=== PATIENT | female | born 1965 | race Caucasian/White ===

== ENCOUNTER → 2020-02-20 09:00 | Outpatient (BNVA) | payer OTHER, SELFPAY | PROVIDERS: Family Provider Specialist; PCP Specialist; Visit Provider Nurse Practitioner Family | DX: Z11.59 Encounter for screening for other viral diseases (principal) | CPT/HCPCS: 87635 ==

== ENCOUNTER 2020-04-27 13:27 | Emergency (ER) | payer OTHER, SELFPAY ==
[2020-04-27 13:32] VITALS: BP 169/73; PULSE 80; RESP 18; TEMP 28.8; O2SAT 97; BMI 30.9
[2020-04-27 14:07] VITALS: BP 140/70; PULSE 75; RESP 16; O2SAT 97
--- NOTE | 2020-04-27 14:39 | USCV_ITS ---
Pau Graham Age: 54 Gender: F : 1965 Exam Date: 04/27/2020 14:42 Ordering Phys: Pratik Taveras DO Technologist: Flavio Pace Exam Location: [facility] Indication: arterial thrombosis. cold foot Risk Factors: Previous Vascular Surgery: RIGHT LEFT BP: 151.0 / 118.00 BP: 148.0/ 89.00 0 0 Waveform Velocity (cm/s) Velocity (cm/s) Waveform Iliac Prox 51.5 Biphasic Iliac Mid 52.1 Biphasic Iliac Distal 64.5 Biphasic POLICE STENOGRAPHER 36.3 Monophasic SFA Prox 39.8 Monophasic SFA Mid 34.7 Monophasic SFA Dist 28.7 Monophasic POP 25.4 Monophasic JEWEL FLAT SURFACER 23.0 Monophasic DPA 22.4 Monophasic BRITTNEY 0.8 FINDINGS Mild to moderate diffuse plaques in the iliac and femoral artery on the left side. Diminished resting BRITTNEY of 0.8 on the left side Patent iliac, femoral, popliteal and infrapopliteal vessels on the left side CONCLUSIONS Features of mild to moderate peripheral artery disease on the left side Dr Kaya Charles MD [facility] (Electronically Signed) Final Date: 28 April 2020 08:22 S
[2020-04-27 14:58] LABS: Basophils % 0.5 %; Eosinophils # 0.2 10^3/uL (0.0-0.8); Eosinophils % 1.8 %; Hematocrit 44.4 % (37.0-47.0); Hemoglobin 14.8 g/dL (11.5-15.3); Lymphocytes # 2.8 10^3/uL (0.8-4.8); Lymphocytes % 31.1 %; Mean Corpuscular HGB Conc 33.3 g/dL (30.0-36.0); Mean Corpuscular Hemoglobin 31.8 pg (28.0-34.0); Mean Corpuscular Volume 95.5 fL (81-99); Mean Platelet Volume 10.1 fL (7.4-10.4); Monocytes # 0.8 10^3/uL (0.2-0.9); Monocytes % 8.8 %; Neutrophils # 5.08 10^3/uL (1.8-7.7); Neutrophils % 57.6 %; Nucleated Red Blood Cells % 0 %; Platelet Count 204 10^3/cmm (130-400); Red Blood Count 4.65 10^6/uL (4.1-5.3); Red Cell Distribution Width 13.6 % (12.1-15.1); White Blood Count 8.8 10^3/uL (4.0-10.0)
[2020-04-27 15:03] LABS: Alanine Aminotransferase 24 U/L (0-33); Alkaline Phosphatase 76 IU/L (35-105); Anion Gap 13.1 (5-19); Aspartate Amino Transferase 24 U/L (0-32); Blood Urea Nitrogen 10 mg/dL (6-20); Calcium 9.1 mg/dL (8.5-10.5); Carbon Dioxide 25 mmol/L (22-29); Chloride 105 mmol/L (98-107); Glomerular Filtration Rate 165.7 mL/min (90-130); Glucose 105 mg/dL (65-115); Osmolality Calculated 287 mOsm/kg (285-295); Potassium 4.1 mmol/L (3.5-5.1); Sodium 139 mmol/L (136-145); Total Bilirubin 0.6 mg/dL (0.15-1.2)
--- NOTE | 2020-04-27 15:31 | ED_ITS ---
HPI - Extremity Problem General: Chief complaint: Extremity Problem,Nontraumatic Stated complaint: POSS VASC BLOCK LEFT LEG, FROM [facility] Time Seen by Provider: 04/27/20 13:44 History of Present Illness: HPI Narrative: 54-year-old female [facility] from her primary care provider with complaint of discolored toe she has had this for the last several weeks. They have been somewhat uncomfortable. She has a history of coronary artery disease and previously had a stent. She denies any cramping in the calf or thigh. She has minimal claudication to that leg. Patient is former smoker. MD Complaint: other (Discolored toes) Onset (ago): week(s) Pain Consistency: constant Location: left Quality: aching Radiation: none Relieving factors: nothing Exacerbating factors: nothing Associated symptoms: Deny chest pain, fever(s) or rash Review of Systems Const: Denies: fever(s), chills, body aches, change in appetite, fatigue or malaise ENMT: Denies: throat pain, ear or mastoid pain, nasal discharge or nasal congestion Card: Denies: chest pain, edema, dyspnea on exertion or orthopnea Resp: Denies: dyspnea, productive cough or non-productive cough GI: Denies: abdominal pain, nausea, vomiting, hematemesis, coffee ground emesis, diarrhea, constipation, bloating, hematochezia or melena : Denies: flank pain, difficulty voiding, dysuria, urinary frequency or urinary urgency Skin/Breast: Denies: rash or pruritus PFS ED PFSH: Medical History (Updated 04/27/20 @ 15:37 by Pratik Taveras DO) Coronary artery disease Social History Smoking and tobacco status: current every day smoker cigarettes Packs smoked per day: 0.5 Alcohol intake: current Alcohol intake frequency: holidays/special occasions only Physical Exam Const: COMMON NORMALS: no acute distress GENERAL APPEARANCE: cooperative and comfortable ORIENTATION/CONSCIOUSNESS: Yes awake, Yes oriented to person, Yes oriented to place and Yes oriented to time HENMT: COMMON NORMALS: normocephalic, atraumatic and hearing grossly normal bilaterally HEAD & SCALP: normocephalic and atraumatic Neck/C-Spine: COMMON NORMALS: no JVD Resp: COMMON NORMALS: normal respiratory effort, No retractions, No use of accessory muscles and clear to auscultation bilaterally AUSCULTATION: clear to auscultation bilaterally Cardio: COMMON NORMALS: no JVD, regular rate, regular rhythm and No murmurs present (Cardio) RATE: regular rate RHYTHM: regular rhythm GI: COMMON NORMALS: Soft to palpation and No hepatosplenomegaly present AUSCULTATION: Yes normoactive bowel sounds PALPATION: Yes Soft to palpation, No Tenderness to palpation present (GI), No Guarding due to palpation present (GI) and Yes No hepatosplenomegaly present Extremity: NARRATIVE EXTREMITY EXAM: Violaceous discoloration to the tip of the great toe and the third and fourth toe is partial at the tips it is not circumferential not involve the entire digit. I can palpate a very weak dorsalis pedis pulse I cannot palpate a posterior tibialis pulse is also weak femoral pulse and +2/4 femoral pulse. Neuro: SENSORIUM/ORIENTATION: Yes oriented to person, Yes oriented to place and Yes oriented to time Skin: COMMON NORMALS: no rashes or lesions noted GENERAL SKIN EXAM: no rashes or lesions noted Course Vital Signs: Vital signs: Vital Signs Temperature 84 F L 04/27/20 13:32 Pulse Rate 80 04/27/20 13:32 Respiratory Rate 18 04/27/20 13:32 Blood Pressure 169/73 04/27/20 13:32 Pulse Oximetry 97 04/27/20 13:32 MDM - Extremity (Nontraumatic) MDM Narrative: Medical decision making narrative: Will go ahead and discharge her home started on Plavix and amlodipine. We will set her up to follow-up with interventional cardiology Lab Data: Labs: Lab Results 04/27/20 04/27/20 Range/Units 14:02 14:02 WBC 8.8 (4.0-10.0) 10^3/ uL RBC 4.65 (4.1-5.3) 10^6/u L Hgb 14.8 (11.5-15.3) g/dL Hct 44.4 (37.0-47.0) % MCV 95.5 (81-99) fL MCH 31.8 (28.0-34.0) pg MCHC 33.3 (30.0-36.0) g/dL RDW 13.6 (12.1-15.1) % Plt Count 204 (130-400) 10^3/c mm MPV 10.1 (7.4-10.4) fL Neut % (Auto) 57.6 % Lymph % (Auto) 31.1 % [place] % (Auto) 8.8 % Eos % (Auto) 1.8 % Baso % (Auto) 0.5 % Neut # (Auto) 5.08 (1.8-7.7) 10^3/u L Lymph # (Auto) 2.8 (0.8-4.8) 10^3/u L [place] # (Auto) 0.8 (0.2-0.9) 10^3/u L Eos # (Auto) 0.2 (0.0-0.8) 10^3/u L Baso # (Auto) 0.0 (0.0-0.1) 10^3/u L Nucleated RBC % (a uto) 0 % Nucleated RBCs # 0.0 /100WBC Sodium 139 (136-145) mmol/L Potassium 4.1 (3.5-5.1) mmol/L Chloride 105 (98-107) mmol/L Carbon Dioxide 25 (22-29) mmol/L Anion Gap 13.1 (5-19) BUN 10 (6-20) mg/dL Creatinine 0.4 L (0.5-0.9) mg/dL GFR Calculation 165.7 H (90-130) mL/min Glucose 105 (65-115) mg/dL Calculated Osmolal ity 287 (285-295) mOsm/k g Calcium 9.1 (8.5-10.5) mg/dL Total Bilirubin 0.6 (0.15-1.2) mg/dL AST 24 (0-32) U/L ALT 24 (0-33) U/L Alkaline Phosphata se 76 (35-105) IU/L Total Protein 7.0 (6.6-8.7) g/dL Albumin 4.0 (3.5-5.2) g/dL Globulin 3.0 (1.3-4.6) g/dL Discharge Plan Discharge Patient Disposition: Home Clinical Impression: Peripheral vascular disease Condition: Stable Prescriptions: New clopidogrel 75 mg tablet 75 mg PO DAILY Qty: 30 RF: 0 amlodipine 5 mg tablet 5 mg PO DAILY Qty: 30 RF: 0 No Action ibuprofen 200 mg capsule 200 mg PO Q8H PRN (Reason: PAIN/FEVER) RF: 0 Discharge Orders: Discharge ED (Routine); Ordered 04/27/20 Ordered By: Pratik Taveras Discharge Diet: Usual diet Discharge Activity: Increase activity as tolerated Activity Restrictions/Additional Instructions: Case management will arrange for follow-up with interventional cardiology to further evaluate blood flow in your leg Coding Level of Care Code ED Extracorporeal Circulation Specialist for Chg Fwd Exam Detailed
[2020-04-27 15:57] VITALS: BP 120/79; PULSE 75; RESP 16; O2SAT 97
--- NOTE | 2020-04-28 10:25 | DCPLANNER ---
airport operations duty manager had message to schedule a follow up appointment for patient with heart care. airport operations duty manager called heart care, spoke with Carin, gave clinic patients information. A follow up appointment was scheduled for patient for , May 06, 2020 at 2:15 with Rickey Beasley. airport operations duty manager called patient and gave patient the appointment information. Patient stated that she would attend the appointment.
--- NOTE | 2020-05-19 15:42 | DCPLANNER ---
Patient had an appointment scheduled with heart care - appointment was rescheduled.
== END 2020-04-27 15:58 | disposition home or self-care (01) ==
PROVIDERS: Emergency Provider Family Medicine; PCP Specialist
DX: I73.9 Peripheral vascular disease, unspecified (principal); I25.10 Atherosclerotic heart disease of native coronary artery without angina pectoris; F17.210 Nicotine dependence, cigarettes, uncomplicated
CPT/HCPCS: 12345; 80053; 85025; 93926; 99282; 99283

== ENCOUNTER 2020-06-28 10:06 | Outpatient (CLI) | payer BC, SELFPAY ==
--- NOTE | 2020-06-28 10:30 | CT_ITS ---
WS: [id number] CTA ABDOMINAL AORTA WITH RUNOFF TECHNIQUE: Contrast enhanced CTA of the abdominal aorta with bilateral lower extremity runoff. Multip lanar reformatted images were obtained. MIP reformats were also reviewed. CLINICAL INFORMATION: I73.9 - Peripheral vascular disease, unspecified COMPARISON: None. DLP: 1461.[address] scans at [facility] use at least one of these dose optimization techniques: automat ed exposure control; mA and/or kV adjustment per patient size (includes targeted exams where dose is matched to clinical indication); or iterative reconstruction. FINDINGS: Focal filling defect in the left ventricle anteriorly measuring 2.5 x 1.4 cm suspicious for thrombus. Recommend further evaluation with echocardiogram. Diffuse fatty infiltration the liver. Adrenal glands are normal. Splenic granulomas. Normal GE juncti on. Normal portal vein and splenic vein. No periaortic or retroperitoneal lymphadenopathy. Sigmoid di verticulosis. Fat-containing umbilical hernia. Normal caliber abdominal aorta. Aortic calcification. Celiac and SMA are patent. Proximal renal arter ies are patent. RIGHT: Right common iliac artery is patent. External and internal iliac arteries are patent. Mild carl cification internal iliac artery. Right common femoral artery is patent. Superficial femoral artery i s patent. Deep femoral artery is patent. Normal popliteal artery. Popliteal artery is patent to the t rifurcation. Normal 3 vessel runoff to the ankle. LEFT: Left common iliac artery is patent with mild calcification proximally. External and internal il iac arteries are patent. Common femoral artery is patent. Superficial femoral artery origin is patent . Deep femoral artery is patent. Short segment occlusion of the superficial femoral artery in the pro ximal thigh. Superficial femoral artery is otherwise patent to the adductor hiatus. Popliteal artery is patent. Popliteal artery remains patent to the trifurcation with two-vessel dominant runoff to the ankle. Poor flow in the peroneal artery distally. CT/CT angio abd aorta runof 42316 IMPRESSION: 1. Normal caliber abdominal aorta with mild to moderate calcified atheromatous disease. 2. LEFT: Short segment occlusion of the superficial femoral artery in the prox imal thigh which reconstitutes just distal to the occlusion. Superficial femora l artery is otherwise patent to the adductor hiatus. Left popliteal artery is p atent. Two-vessel runoff to the left ankle with poor flow in the peroneal arter y distally. 3. No flow-limiting stenosis in the RIGHT lower extremity. Tiny peroneal arter y distally. 4. Focal lobulated filling defect in the left ventricle near the apex suspicio us for thrombus. Recommend echocardiogram further evaluation. 5. Additional nonvascular findings described above. Message left for Domenic Beasley MD at 06/28/2020 11:43 AM.
[2020-06-28] MEDS: iohexol 350 mg/mL 100 mL Btl IV (11:12)
== END 2020-06-28 10:07 | disposition home or self-care (01) ==
PROVIDERS: PCP Family Medicine; Visit Provider Internal Medicine Cardiovascular Disease
DX: I73.9 Peripheral vascular disease, unspecified (principal)
CPT/HCPCS: 75635; Q9967

== ENCOUNTER → 2020-07-30 11:28 | Outpatient (BNVA) | payer BC, SELFPAY | PROVIDERS: PCP Family Medicine; Visit Provider Internal Medicine Cardiovascular Disease | DX: Z20.822 Contact with and (suspected) exposure to COVID-19 (principal) | CPT/HCPCS: 87635 ==

== ENCOUNTER 2020-08-05 08:59 | Day surgery (SDC) | payer BC, SELFPAY ==
[2020-07-28 11:39] LABS: Basophils % 0.3 %; Eosinophils # 0.1 10^3/uL (0.0-0.8); Eosinophils % 1.5 %; Hematocrit 44.8 % (37.0-47.0); Lymphocytes # 2.6 10^3/uL (0.8-4.8); Mean Corpuscular HGB Conc 33.5 g/dL (30.0-36.0); Mean Corpuscular Volume 95.5 fL (81-99); Mean Platelet Volume 9.3 fL (7.4-10.4); Monocytes # 0.7 10^3/uL (0.2-0.9); Neutrophils # 5.16 10^3/uL (1.8-7.7); Nucleated Red Blood Cells % 0 %; Platelet Count 199 10^3/cmm (130-400); Red Blood Count 4.69 10^6/uL (4.1-5.3); Red Cell Distribution Width 13.6 % (12.1-15.1); White Blood Count 8.6 10^3/uL (4.0-10.0)
[2020-07-28 11:48] LABS: INR 0.93 (0.8-1.2)
[2020-07-28 11:54] LABS: Anion Gap 13.5 (5-19); Blood Urea Nitrogen 15 mg/dL (6-20); Calcium 9.2 mg/dL (8.5-10.5); Carbon Dioxide 26 mmol/L (22-29); Chloride 101 mmol/L (98-107); Glomerular Filtration Rate 128.1 mL/min (90-130); Glucose 102 mg/dL (65-115); Osmolality Calculated 283 mOsm/kg (285-295); Potassium 4.5 mmol/L (3.5-5.1); Sodium 136 mmol/L (136-145)
[2020-08-05] VITALS (53 sets, daily range): BP systolic 108–148; BP diastolic 64–97; PULSE 61–98; RESP 8–26; TEMP 36.5–36.6; O2SAT 93–98; BMI 30.2
--- NOTE | 2020-08-05 09:00 | XACV_ITS ---
Wt: 80 kg BSA: 1.92 m2 Any Known Allergies: Sulfa Gender: Female : 1965 Exam Type: Invasive Peripheral Vascular Procedure(s): Procedure Description: Peripheral Cath Diagnostic Procedure Procedure Description: Abdominal aortic angiography Procedure Description: Lower extremities' angiography Procedure Description: Peripheral vascular Intervention Procedure Description: PV Balloon Procedure Description: PV Atherectomy Exam Priority: Routine Lower Extremity Diagnostic Findings Indication for peripheral angiogram: Lifestyle limiting claudication of left leg despite of optimization of medicine.Abdominal aortogram: Moderate abdominal aneurysm noted. Renal vessels were not well visualizedBilateral common iliac arteries are normal, bilateral external and internal iliac arteries has luminal irregularities. Bilateral common femoral arteries has luminal irregularity, bilateral profundofemoral artery has luminal irregularity. Right SFA has luminal irregularity. Left SFA has high-grade proximal to distal tandem highly calcified subtotally stenotic lesions with sluggish flow vessel reconstitute in the distal segment through collateral from profunda. It is the culprit vessel. Left popliteal artery has luminal irregularity, left tibioperoneal trunk has luminal irregularity, below the knee left side vessels were not well visualized due to sluggish flow. Left popliteal artery has luminal irregularity, left tibioperoneal trunk has luminal irregularity.. Lower Extremity Interventional Findings Through right common femoral approach long sheath was placed in the left external iliac vessel. After somewhat difficulty we were able to cross with the help of seeker and Glidewire through the left SFA into tibioperoneal trunk. Viper wire was exchanged with a Glidewire through seeker. Orbital atherectomy using 2.0 CSI bur was used to perform multiple runs in the proximal to distal left SFA. Lutonics drug-coated balloon were used for balloon angioplasty of those highly calcified lesion. Please see the inventory for time of inflation pressure and caliber fof the balloons.Excellent angiographic result with good flow was established in proximal to distal left SFA, tibioperoneal trunk with 2-vessel runoff below the knee. Conclusions null was treated with two Balloon. Recommendations Continue current medical management and risk factor modification. Follow up with PCP as directed. Hemodynamic Data Phase:Rest AO : 137.0 / 67.0 ( 92.0 ) @ 6:45:00 AM Access Site Site: Right Radial artery Sheath Size: 6 Fr Hemost... Method: Suture Hemost... Success: Successful Procedure Details Findings Pre-Procedure Time Out. Identified patient by full name and date of as verbalized by the patient/guarantor. Does the consent match the physician's order: Yes. Accurate & Complete Informed Consent: Yes. Inpatient/Outpatient History & Physical on Chart: Yes. If H&P is completed, is and addenduem needed: No; If yes, is the addendum complete: N/A. Visualize and Verify Site with Patient/Guarantor: N/A. Relevant Radiology Images available: N/A. Pre-op teaching completed and patient verbalized understanding. The risks, benefits, and alternatives of sedation and/or procedure were discussed by physician. The patient agrees to continue. Procedure started. Correct patient, site and procedure confirmed by cath team. PERRLA. Strong, equal hand phone specialist bilaterally. Lungs clear x 5 lobes. IV Site on Arrival: 20 gauge in the left anticubital. IV Fluids: 0.9% NaCl at KVO. 0. mL infused prior to clinical lab clerk. Pre Procedural Pulses: right posterior tibial was 2+. Pre Procedural Pulses: left posterior tibial was Doppled. Pre Procedural Pulses: right dorsalis pedis was 2+. Pre Procedural Pulses: left dorsalis pedis was Doppled. Pre Procedural Pulses: bilateral radial was 3+. Oxygen started at 2liters/min via nasal canula. bilateral groins was prepped with chloroprep then draped in the usual sterile fashion. Physician arrived. Equipment: Peripheral. Cardiac Cath Pack. ACIST Manifold Kit Model BT 2000. Heparinized Saline (2 units/mL), 1000 mL bag. Inventory is JJ 6F 11cm Grace Plus Sheath. Baseline sample Acquired. HR: 72 BPM. Physician notified. Inventory is TR Glidewire Angled Stiff Shaft .035 260cm. Physician scrubbed in. Immediate Pre-Procedure Time Out. Correct Patient: Yes; Correct Procedure: Yes; Correct Site: Yes; Correct Patient Position: Yes; Correct Supplies: Yes; Dried Flammable Prep: Yes; Blood Products Available: N/A;. Lidocaine 1% infiltrated to the right groin. Arterial access obtained with micropuncture set. A OROS 5F UF catheter 65cm was advanced over the wire and used for Abdominal aortogram with runoff. Abdominal aortogram performed in AP @ 10 mL/sec for a total of 30 mL. Glidewire inserted. Catheter removed over the glide wire. Short 6 fr sheath exchanged for long 45 cm 6 fr Flexor sheath. Left leg runoff through sheath. 10 ml for total of 30 ml. SEEKER support catheter inserted over glidewire. Glidewire out. VIPER wire inserted. SEEKER catheter removed. 2.0 Diamondback 360 orbital atherectomy device inserted over VIPER wire. Orbital atherectomy performed to Left SFA. Orbital atherectomy performed to Left SFA. Orbital atherectomy performed to Left SFA. Orbital atherectomy performed to Left SFA. Orbital atherectomy performed to Left SFA. Atherectomy device removed over VIPER wire. SEEKER support catheter inserted over VIPER wire. Viper wire out. Glidewire inserted. SEEKER catheter removed over glidewire. Inflation number : 1 A BARD 5FR Lutinox [id number] drug coated balloon was prepped and advanced across the Superficial Femoral, Left , then inflated to 7 AYAD for 1:05 seconds. Inflation number: 2 The BARD 5FR Lutinox 6.1r321at drug coated balloon was reinflated across the Superficial Femoral, Left, to 7 AYAD for 1:11 seconds. Balloon out over wire. Inflation number : 3 A BARD 5 FR Lutonix 7.0x60mm was prepped and advanced across the Superficial Femoral, Left , then inflated to 4 AYAD for 1:03 seconds. Inflation number: 4 The BARD 5 FR Lutonix 7.0x60mm was reinflated across the Superficial Femoral, Left, to 9 AYAD for 1:03 seconds. Inflation number: 5 The BARD 5 FR Lutonix 7.0x60mm was reinflated across the Superficial Femoral, Left, to 9 AYAD for 1:02 seconds. Inflation number: 6 The BARD 5 FR Lutonix 7.0x60mm was reinflated across the Superficial Femoral, Left, to 9 AYAD for 1:02 seconds. Inflation number: 7 The BARD 5 FR Lutonix 7.0x60mm was reinflated across the Superficial Femoral, Left, to 9 AYAD for 1:02 seconds. Balloon out over wire. Glidewire out. Left leg runoff 10 ml for total of 30 ml to check results. 45 cm 6 fr Flexor sheat exchanged for short 6 fr sheath. Right leg runoff through sheath 10 ml for total of 30 ml. Physician scrubbed out. A Suture was successful obtaining hemostatsis at the Right Radial artery insertion site. Sheath(s) sutured into position with 2-0 silk and sterile 4x4's and Op-site applied over the site. No oozing or signs and symptoms of hematoma noted. Arterial sheath flushed and connected to tranducer and pressure bag with heparinized saline. Post Procedure: Pulses reassessed and unchanged. PERRLA. Strong, equal hand phone specialist bilaterally. No VTE prophylaxis required. Medication's Wasted: Lidocaine 1% = 2 mL. Medication's Wasted: Verapamil = 4 mg. Medication's Wasted: Nitro = 49.6 mg. Medication's Wasted: Heparin = 2000 units. Total IV fluids: 87.7 mL. Contrast type used: Visipaque 320 mgI/mL, 500 mL bottle. Post-op diagnosis: critical limb ischemia, PVD. Complications: none. Estimated blood loss: 5mL-10mL. Procedure completed. Patient transferred by bed to 1st floor. Vital chart was stopped. Procedure Medications Start: 11:26 AM Stop: 11:26 AM Medication: Versed Amount: 1 mg Route: I.V. Start: 11:26 AM Stop: : AM Medication: Fentanyl Amount: 50 mcg Route: I.V. Start: 11:34 AM Stop: : AM Medication: Versed Amount: 1 mg Route: I.V. Start: 11:34 AM Stop: : AM Medication: Fentanyl Amount: 25 mcg Route: I.V. Start: 11:52 AM Stop: 11:52 AM Medication: Heparin Amount: 5000 units Route: I.V. Start: 12:05 PM Stop: 12:05 PM Medication: Versed Amount: 1 mg Route: I.V. Start: 12:05 PM Stop: 12:05 PM Medication: Fentanyl Amount: 25 mcg Route: I.V. Start: 12:06 PM Stop: 12:06 PM Medication: Heparin Amount: 2000 units Route: I.V. Start: 12:12 PM Stop: 12:12 PM Medication: Versed Amount: 1 mg Route: I.V. Start: 12:18 PM Stop: 12:18 PM Medication: Versed Amount: 1 mg Route: I.V. Start: 12:18 PM Stop: 12:18 PM Medication: Fentanyl Amount: 50 mcg Route: I.V. Start: 12:23 PM Stop: 12:23 PM Medication: Versed Amount: 1 mg Route: I.V. Start: 12:23 PM Stop: 12:23 PM Medication: Fentanyl Amount: 50 mcg Route: I.V. Start: 12:25 PM Stop: 12:25 PM Medication: Nitrogylcerin Amount: 400 mcg Route: I.A. I, the attending physician, have reviewed and verified all procedure medications. Yes, all medications given per verbal order History/Risk Factors Hypertension: No Dyslipidemia: No Peripheral Arterial Disease (PAD): Yes Obesity: No Renal Disease: No Tobacco Use: Current/Recent(w/in 1 year) Prior Interventions PCI: No CABG: No Valve Surgery: No Report Signatures Finalized by Domenic Beasley MD on 08/18/2020 07:20 PM
[2020-08-05] MEDS: diphenhydrAMINE 50 mg Capsule PO (09:35)
--- NOTE | 2020-08-05 11:18 | W.PM.OPSFHP ---
Same Day Surgery H&P Indication for Procedure/HPI DATE OF PROCEDURE: August 05, 2020 CHIEF COMPLAINT/INDICATIONFOR SURGICAL PROCEDURE: Lifestyle limiting claudication abnormal BRITTNEY, abnormal CTA of left lower extremity PREOP DIAGNOSIS: Lifestyle limiting claudication with chronic occlusion of SFA PLANNED PROCEDRUE: Operation Date: 08/05/20 10:00 Proposed Procedures p Peripheral Diagnostic 13453 I73.9(Not Applicable) - Domenic Beasley MD 54-year-old female past medical history significant for hypertension hyperlipidemia tobacco abuse peripheral arterial disease coronary artery disease for worsening of left leg cramps pain hindering her lifestyle despite of optimization of medicine and use of cilostazol underwent CTA after abnormal ABIs. CTA was suggestive of proximal left SFA complete occlusion. Since patient continues to do worse upon walking despite of medicine optimization and walking exercise she has been brought in for peripheral angiogram and intervention if required. I have explained the patient in detail all the risk benefit and alternative for the procedure. She understand the risk of major minor bleed urgent emergent vascular surgery, acute limb ischemia leading to the leg loss, and in worse case scenario . She understand all the risk benefit and FDA warning regarding drug-coated balloons as it increased mortality in the patients, she has given me the permission to use it if required. At this point we will proceed with peripheral angiogram. Medications/Allergies* Home Medications Medication Instructions Recorded Confirmed Type multivitamin 1 tab PO DAILY 05/27/20 08/05/20 History vitamin B complex 1 tab PO DAILY 05/27/20 08/05/20 History acetaminophen [Tylenol Extra 500 mg PO Q6H PRN 08/05/20 08/05/20 History Strength] Allergies/Adverse Reactions Allergy/AdvReac Type Severity Reaction Status Date / Time Sulfa (Sulfonamide Allergy Unknown Verified 08/05/20 10:01 Antibiotics) Current Medications: Generic Name Dose Route Start Last Admin Trade Name Freq PRN Reason Stop Dose Admin Sodium Chloride 1,000 mls @ 50 mls/hr 08/05/20 09:00 08/05/20 10:05 Sodium Chloride 0.9% IV 08/06/20 04:59 Not Given .Q20H ONE Pertinent History/Comorbid Conditions* Medical History (Updated 05/31/20 @ 19:23 by Domenic Beasley MD) Coronary artery disease HTN (hypertension) with goal to be determined PAD (peripheral artery disease) Family History (Updated 05/27/20 @ 12:33 by Antonette Garcia RN) Adopted Social History Smoking and tobacco status: current every day smoker cigarettes Packs smoked per day: 0.5 Alcohol intake: current Alcohol intake frequency: holidays/special occasions only Pertinent Exam Findings alert, oriented x 3, clear to auscultation bilaterally and regular rate & rhythm Conscious Sedation Assessment PATIENT ASSESSED PRIOR TO SEDATION, WITH NO CHANGE NOTED: Yes AIRWAY EVAL/ANESTHESIA PLAN: ASA II, Risks, benefits & alternatives of sedation and/or procedure discussed and Patient agrees to continue as planned Recommendations Surgery/Procedure today Coding Level of Care Code Acute Refrigeration Service Inspector for Lucy Dwyer
[2020-08-05 16:21] LABS: Partial Thromboplastin Time > 250.0 SECONDS (23.9-36.7)
[2020-08-05 17:54] LABS: Partial Thromboplastin Time 38.9 SECONDS (23.9-36.7)
--- NOTE | 2020-08-05 18:10 | PC.NURSE ---
Patient has been resting in bed since being admitted to ICU. Bed remains in a flat position with right groin sheath patent. No complaints have been made.
[2020-08-05] MEDS: HYDROcodone-acetaminophen 5-325 mg Tablet 1 TAB PO (18:38)
[2020-08-05] MEDS: fentaNYL 50 mcg/mL INJ 2mL IVP (19:51)
--- NOTE | 2020-08-05 20:40 | PC.NURSE ---
Sheath Removal Right femoral arterial sheath removed at 2000. 50mcg fentanyl given IVP for pain. Pressure held 20 minutes until hemostasis achieved. No hematoma present, site is asymptomatic. Cleansed with chlorhexidine and applied clear dry sterile dressing. Pt tolerated well. Pt educated on activity and leg flat for next 6 hrs, also educated on reportable signs and symptoms.
[2020-08-06] VITALS (9 sets, daily range): BP systolic 112–151; BP diastolic 68–123; PULSE 69–87; RESP 16–20; TEMP 36.8–36.9; O2SAT 92–99
[2020-08-06] MEDS: HYDROcodone-acetaminophen 5-325 mg Tablet 1 TAB PO ×2 (02:26→13:47)
[2020-08-06] MEDS: sodium chloride 0.9% 1,000 ML 100 ML IV (02:27)
--- NOTE | 2020-08-06 02:28 | PC.NURSE ---
6 hr bedrest up. Pt unable to void per bedpan. Assisted up to BSC with stand by assistance. Voided 300ml. Assisted back to bed. Right site puncture site remains asymptomatic.
[2020-08-06 04:07] LABS: Basophils # 0.1 10^3/uL (0.0-0.1); Basophils % 0.5 %; Hematocrit 27.9 % (37.0-47.0); Hemoglobin 9.1 g/dL (11.5-15.3); Lymphocytes % 8.7 %; Mean Corpuscular HGB Conc 32.6 g/dL (30.0-36.0); Mean Corpuscular Hemoglobin 31.6 pg (28.0-34.0); Mean Corpuscular Volume 96.9 fL (81-99); Mean Platelet Volume 11.2 fL (7.4-10.4); Monocytes # 2.8 10^3/uL (0.2-0.9); Monocytes % 12.1 %; Neutrophils # 17.74 10^3/uL (1.8-7.7); Neutrophils % 76.6 %; Nucleated Red Blood Cells % 0 %; Platelet Count 251 10^3/cmm (130-400); Red Blood Count 2.88 10^6/uL (4.1-5.3); Red Cell Distribution Width 13.6 % (12.1-15.1); White Blood Count 23.2 10^3/uL (4.0-10.0)
[2020-08-06 04:24] LABS: Anion Gap 19.1 (5-19); Blood Urea Nitrogen 47 mg/dL (6-20); Calcium 9.1 mg/dL (8.5-10.5); Carbon Dioxide 17 mmol/L (22-29); Chloride 101 mmol/L (98-107); Glomerular Filtration Rate 13.6 mL/min (90-130); Glucose 117 mg/dL (65-115); Osmolality Calculated 287 mOsm/kg (285-295); Potassium 5.1 mmol/L (3.5-5.1); Sodium 132 mmol/L (136-145)
[2020-08-06] MEDS: clopidogrel 75 mg Tablet PO (08:20)
[2020-08-06] MEDS: amlodipine 5 mg Tablet PO (08:20)
--- NOTE | 2020-08-06 12:12 | PM.DCS ---
Discharge Providers Date of Discharge: August 06, 2020 Attending Provider at Discharge: Domenic Beasley MD Primary Care Provider: Donnie Crystal DO Reason for Visit Reason for Visit: diagnostic angiogram Hospital Course Hospital Course 54-year-old female past medical history significant for hypertension coronary disease vasculitis and severe peripheral arterial disease underwent atherectomy followed by balloon angioplasty of the left SFA and popliteal vessel with excellent angiographic result. Post intervention patient did fine without any complication. This morning she has some soreness in the leg where atherectomy was performed apart from that she denies any complaint. She has good palpable anterior and posterior tibial pulses. Patient has been given education regarding peripheral arterial disease. We will follow her up in our clinic in 7 days with Ms. Xiomara Mckeon our cardiology nurse practitioner. Physical Exam Narrative: EXAM NARRATIVE: GENERAL: Patient is alert, awake and oriented x3. NECK: No jugular vein distension. HEENT: No cyanosis. No icterus. No pallor. HEART: Regular S1 and S2. No murmur, rub or gallop. LUNGS: Clear to auscultate bilaterally. ABDOMEN: Soft, nontender and nondistended. Positive bowel sounds. No guarding, rebound or tenderness. CENTRAL NERVOUS SYSTEM: Grossly nonfocal. EXTREMITIES: Lower extremities without edema bilaterally. Pulses palpable in the lower extremities, both dorsalis pedis and posterior tibial. Discharge Data Data Completed and Pending: Pending at discharge Category Date Time Status APPLICATION SPECIALIST request for service Routin e Exams 08/05/20 09:00 Taken Labs from last 24 hours 08/06/20 08/06/20 08/05/20 03:42 03:42 17:15 WBC 23.2 H RBC 2.88 L Hgb 9.1 L Hct 27.9 L MCV 96.9 MCH 31.6 MCHC 32.6 RDW 13.6 Plt Count 251 MPV 11.2 H Neut % (Auto) 76.6 Lymph % (Auto) 8.7 [place] % (Auto) 12.1 Eos % (Auto) 0.0 Baso % (Auto) 0.5 Neut # (Auto) 17.74 H Lymph # (Auto) 2.0 [place] # (Auto) 2.8 H Eos # (Auto) 0.0 Baso # (Auto) 0.1 Nucleated RBC % (a uto) 0 Nucleated RBCs # 0.0 APTT 38.9 H D Sodium 132 L Potassium 5.1 Chloride 101 Carbon Dioxide 17 L Anion Gap 19.1 H BUN 47 H Creatinine 3.5 H GFR Calculation 13.6 L Glucose 117 H Calculated Osmolal ity 287 Calcium 9.1 08/05/20 14:28 WBC RBC Hgb Hct MCV MCH MCHC RDW Plt Count MPV Neut % (Auto) Lymph % (Auto) [place] % (Auto) Eos % (Auto) Baso % (Auto) Neut # (Auto) Lymph # (Auto) [place] # (Auto) Eos # (Auto) Baso # (Auto) Nucleated RBC % (a uto) Nucleated RBCs # APTT > 250.0 H* Sodium Potassium Chloride Carbon Dioxide Anion Gap BUN Creatinine GFR Calculation Glucose Calculated Osmolal ity Calcium Vitals: Last Vital Signs Temp 98.3 F 08/06/20 06:00 Pulse 69 08/06/20 10:00 Resp 16 08/06/20 10:00 BP 151/68 08/06/20 10:00 Pulse Ox 97 08/06/20 10:00 Discharge Plan Discharge Patient Disposition: Home Condition: Stable Prescriptions: New Adult Low Dose Aspirin 81 mg tablet,delayed release (DR/EC) 81 mg PO DAILY Qty: 30 RF: 5 Continued vitamin B complex [B Complex-Vitamin B12] Tablet 1 tab PO DAILY RF: 0 multivitamin Tablet 1 tab PO DAILY RF: 0 amlodipine 5 mg tablet 5 mg PO DAILY Qty: 30 RF: 5 clopidogrel 75 mg tablet 75 mg PO DAILY Qty: 30 RF: 5 acetaminophen 500 mg Capsule 500 mg PO Q6H PRN (Reason: Pain) RF: 0 Discontinued cilostazol 50 mg tablet 50 mg PO BID Qty: 180 RF: 3 Discharge Orders: Discharge Order (Routine); Ordered 08/06/20 Ordered By: Domenic Beasley Referrals: Domenic Beasley MD [Physician] - (PLEASE SCHEDULE THIS FOLLOW UP .AT TIME OF APPOINTMENT WITH XIOMARA MCKEON SO SHE CAN SCHEDULE FOR TIME OF APPOINTMENT ) Xiomara Mckeon FNP [Nurse Practitioner] - 7-10 days (PLEASE CALL FOR THIS FOLLOW UP APPOINTMENT, AT [facility] [phone] WILL DO WOUND CHECK AND LAB TEST WITH XIOMARA MCKEON APN , PLEASE CALL [facility] TO SCHEDULE THIS APPOINTMNET.WILL NEED TO BE SEEN 7-10 DAYS. ) Discharge Diet: Cardiac and Low Salt Discharge Activity: Increase activity as tolerated Patient Instructions: Aspirin (By mouth), Heart Healthy Diet, Low Sodium Diet (DC), Peripheral Vascular Angioplasty (DC) Activity Restrictions/Additional Instructions: No lifting of more than a gallon of milk for next 3 days. Follow-up with Xiomara Mckeon cardiology nurse practitioner in [address] Beasley's office. You will be given the appointment for it. If you have any question please call Dr. Beasley's office Discharge Attestations Time Spent in Discharge Care*: greater than 30 min Specific Discharge Activities: educating patient Quality Metrics Clinical Quality Measures During this hospital stay, did patient experience: None Coding Level of Care Code Acute Chg FW DC note
--- NOTE | 2020-08-06 13:37 | PC.NURSE ---
Attempted to schedule follow up appointment and office was closed. Patient informed to call and make appointment on Sunday.
--- NOTE | 2020-08-06 13:57 | PC.NURSE ---
Addendum entered by Wen Caldwell RN 08/06/20 14:03: Right groin site dressing was dry and intact. Original Note: Patient was discharged at 1350 via wheelchair to family members vehicle. Verbal and written discharge instructions given to patient with verbal understanding. Patient received a PRN pain medication prior to discharge for pain 8/10 to left leg.
== END 2020-08-06 13:50 | disposition home or self-care (01) ==
LOC: CCL 09:06 → ICU 08-06 09:32
PROVIDERS: PCP Family Medicine; Visit Provider Internal Medicine Cardiovascular Disease
DX: I70.222 Atherosclerosis of native arteries of extremities with rest pain, left leg (principal); I10 Essential (primary) hypertension; E78.5 Hyperlipidemia, unspecified; F17.210 Nicotine dependence, cigarettes, uncomplicated; I25.10 Atherosclerotic heart disease of native coronary artery without angina pectoris
CPT/HCPCS: 36415; 37225; 75625; 75716; 80048; 85025; 85610; 85730; C1724; C1725; C1769; C1887; C1894; C2623; J1644; J2250; J3010; J3490; J7030; Q0163; Q9967

== ENCOUNTER → 2020-08-13 11:41 | Outpatient (BNVA) | payer BC, SELFPAY | PROVIDERS: PCP Family Medicine; Visit Provider Nurse Practitioner Family | DX: I73.9 Peripheral vascular disease, unspecified (principal) | CPT/HCPCS: 80048 ==